=== PATIENT | female | born 1955 | race Caucasian/White ===

== ENCOUNTER 2020-08-02 15:02 | Emergency (ER) | payer MEDICARE, OTHER ==
[~2020-08-02] VITALS: Ht 172.7 cm; Wt 58.2 kg
[2020-08-02 17:08] LABS: MEAN CORPUSCULAR HGB CONC 33.4 g/dL (32.4-35.8); MEAN PLATELET VOLUME 8.2 fL (7.4-10.4); PLATELET COUNT 262 x10^3/uL (130-400); RED BLOOD COUNT 4.57 x10^6/uL (3.82-5.3); RED CELL DISTRIBUTION WIDTH 12.9 % (9.6-15.2)
[2020-08-02 17:20] LABS: ALBUMIN 3.7 g/dL (3.4-5.0); ANION GAP 9 mmol/L (5-15); CALCIUM 8.6 mg/dL (8.5-10.1); CHLORIDE 101 mmol/L (98-107)
[2020-08-02 17:24] LABS: ALANINE AMINOTRANSFERASE 37 U/L (12-78); ALKALINE PHOSPHATASE 197 U/L (45-117); BILIRUBIN,TOTAL 0.3 mg/dL (0.2-1.0); TOTAL PROTEIN 7.7 g/dL (6.4-8.2)
--- NOTE | 2020-08-02 17:38 | NUR ---
PT RESTING CALMLY IN BED. STILL AWAITING LAB RESULTS.
[2020-08-02 17:59] LABS: MD YES
[2020-08-02 18:10] LABS: BANDS%(MANUAL) 8 % (0-7); BASOS#(MANUAL) 0.14 x10^3/uL (0-0.1); BASOS% (MANUAL) 1 % (0-1); LYMPH#(MANUAL) 1.78 x10^3/uL (1-3.4); LYMPHS% (MANUAL) 13 % (22-44); MONOS#(MANUAL) 1.37 x10^3/uL (0.3-2.7); MONOS% (MANUAL) 10 % (2-9); REACTIVE LYMPHS # (MANUAL) 0.55 x10^3/uL (0-0); REACTIVE LYMPHS % (MANUAL) 4 % (0-0); SEG#(MANUAL) 8.77 x10^3/uL (1.8-6.8); SEGS% (MANUAL) 64 % (42-75)
[2020-08-02 18:11] LABS: <PLATELET ESTIMATE> ADEQUATE; <PLT MORPHOLOGY> NORMAL PLT MORPH; <RBC MORPHOLOGY> NORMAL
--- NOTE | 2020-08-02 18:36 | NUR ---
pt wanting to leave AMA. dr. cortez went in to talk to pt. pt agreed to stay for US bedside, then will decide if she'll stay. pt stated she needs to leave due to father in hospital and they are leaving in the am for a road trip tomorrow morning. bedside US happening now.
--- NOTE | 2020-08-02 18:50 | NUR ---
REPORT FROM MEHUL EMERY. US AT BEDSIDE
--- NOTE | 2020-08-02 19:20 | NUR ---
UA SENT TO LAB. TECH A BEDSIDE TO START PIV
[2020-08-02 19:25] LABS: MICROSCOPIC NOT IND
[2020-08-02] MEDS ORDERED: SODIUM CHLORIDE 0.9% 1,000ML IVBOLUS ONE ×2 (19:30)
--- NOTE | 2020-08-02 20:00 | NUR ---
PT TO LEAVE AMA AFTER FLUIDS. PT EDUCATED ON THE IMPORTANCE OF STAYING. PT UNABLE TO STAY. MD SPOKE WITH PT AT LENGTH AND PT STILL ADAMANT ON LEAVING
[2020-08-02 20:47] VITALS: BP 104/68
--- NOTE | 2020-08-02 20:48 | NUR ---
Patient given discharge instructions and they have confirmed that they understand the instructions. Patient ambulatory with steady gait. NAD, all questions answered appropriately, denies additional needs at this time. No personal belongings left in room after discharge.
== END 2020-08-02 20:51 | disposition left against medical advice (07) ==
LOC: ED 17:34
DX: N17.9 Acute kidney failure, unspecified (principal); E87.5 Hyperkalemia; E87.1 Hypo-osmolality and hyponatremia; I10 Essential (primary) hypertension; R00.0 Tachycardia, unspecified; R11.10 Vomiting, unspecified; M54.5 Low back pain
CPT/HCPCS: 36415; 76770; 80053; 81003; 85025; 93005; 96360; 99291; J7030

== ENCOUNTER 2020-08-04 11:39 | Emergency (ER) | payer MEDICARE ==
[~2020-08-04] VITALS: Ht 172.7 cm; Wt 57.7 kg
[2020-08-04 11:49] VITALS: BP 132/72
[2020-08-04 12:47] LABS: BASOPHILS % (AUTO) 1 % (0-1); EOSINOPHILS % (AUTO) 2 % (1-7); LYMPHOCYTES % (AUTO) 16 % (22-44); MEAN CORPUSCULAR HEMOGLOBIN 31.3 pg (27.0-34.8); MEAN CORPUSCULAR HGB CONC 33.7 g/dL (32.4-35.8); MONOCYTES % (AUTO) 17 % (2-9); NEUTROPHILS % (AUTO) 64 % (42-75); PLATELET COUNT 284 x10^3/uL (130-400); RED BLOOD COUNT 4.66 x10^6/uL (3.82-5.3); RED CELL DISTRIBUTION WIDTH 12.9 % (9.6-15.2)
[2020-08-04 12:48] LABS: MD NO
[2020-08-04 12:56] LABS: ALANINE AMINOTRANSFERASE 53 U/L (12-78); ANION GAP 5 mmol/L (5-15); CALCIUM 9.5 mg/dL (8.5-10.1); CHLORIDE 107 mmol/L (98-107); CREATININE 1.01 mg/dL (0.55-1.02)
[2020-08-04 13:09] LABS: ALBUMIN 3.7 g/dL (3.4-5.0); ALKALINE PHOSPHATASE 228 U/L (45-117); BILIRUBIN,TOTAL 0.4 mg/dL (0.2-1.0); TOTAL PROTEIN 7.9 g/dL (6.4-8.2)
--- NOTE | 2020-08-04 13:50 | NUR ---
AUTOMOTIVE SERVICE PROFESSIONAL: PT AMBULATORY TO ROOM FROM LOBBY AT THIS TIME
--- NOTE | 2020-08-04 14:12 | NUR ---
TASK RN: PATIENT SITTING IN [facility], CALL LIGHT WITHIN REACH, WAITING FOR LAB RESULTS, TO BE DC'D.
--- NOTE | 2020-08-04 14:35 | NUR ---
Patient given discharge instructions and they have confirmed that they understand the instructions. Patient stable and ambulatory with steady gait from ED.
== END 2020-08-04 14:36 | disposition home or self-care (01) ==
LOC: ED 14:30
DX: N17.9 Acute kidney failure, unspecified (principal); I95.9 Hypotension, unspecified; R94.4 Abnormal results of kidney function studies; I10 Essential (primary) hypertension
CPT/HCPCS: 36415; 80053; 85025; 99283